=== PATIENT | female | born 1950 | race Caucasian/White ===

== ENCOUNTER 2016-11-26 14:22 | Emergency (ER) | payer OTHER ==
[~2016-11-26] VITALS: Ht 167.6 cm; Wt 90.9 kg
[~2016-11-26 14:22] MED LIST: ATEN50TA PO; ATOR20TA PO; CITA10TA9 PO; HYDR-4003 PO; LOSA25TA21 PO; METF-496 PO; NABU750T PO; [UNRECOGNIZED DRUG - CODE] PO
[2016-11-26 14:26] VITALS: BP 160/99; PULSE 93; RESP 18; O2SAT 94
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
[2016-11-26] MEDS ORDERED: CYCL5TAB PO (16:35)
[2016-11-26 16:43] VITALS: BP 146/88; PULSE 92; RESP 20; O2SAT 92
== END 2016-11-26 16:43 | disposition home or self-care (01) ==
LOC: SED 14:22
DX: S16.1XXA Strain of muscle, fascia and tendon at neck level, initial encounter (principal); S39.012A Strain of muscle, fascia and tendon of lower back, initial encounter; V43.52XA Car driver injured in collision with other type car in traffic accident, initial encounter; Y92.411 Interstate highway as the place of occurrence of the external cause; Y93.89 Activity, other specified; Y99.8 Other external cause status; I10 Essential (primary) hypertension; E11.9 Type 2 diabetes mellitus without complications; Z87.891 Personal history of nicotine dependence; Z79.84 Long term (current) use of oral hypoglycemic drugs; Z88.5 Allergy status to narcotic agent; Z88.2 Allergy status to sulfonamides; Z88.0 Allergy status to penicillin